=== PATIENT | male | born 1955 | race African-American/Black ===

== ENCOUNTER 2019-01-29 21:27 | Emergency (ER) | payer OTHER ==
[~2019-01-29] VITALS: Ht 188 cm; Wt 113.7 kg
[2019-01-29 21:31] VITALS: Ht 188 cm; Wt 113.7 kg
[2019-01-29] MEDS ORDERED: GLUCOTROL 5 MG T5 MG PO (21:33)
[2019-01-29] MEDS ORDERED: LIPITOR40 MG PO (21:33)
[2019-01-29] MEDS ORDERED: COREG25 MG (21:33)
[2019-01-29] MEDS ORDERED: JARDIANCE10 MG PO (21:34)
[2019-01-29] MEDS ORDERED: BAYER CHEWABLE81 MG (21:36)
[2019-01-29] MEDS ORDERED: MOBIC7.5 MG PO (21:36)
[2019-01-29] MEDS ORDERED: CARDURA2 MG (21:36)
[2019-01-30 00:51] VITALS: BP 123/81
== END 2019-01-30 00:53 | disposition home or self-care (01) ==
LOC: D.ER 21:27
DX: T18.120A Food in esophagus causing compression of trachea, initial encounter (principal)